=== PATIENT | female | born 1970 | race Caucasian/White ===

== ENCOUNTER 2018-01-07 00:33 | Emergency (ER) | payer MEDICARE | END 2018-01-07 02:51 | disposition left against medical advice (07) | LOC: JD.ED 00:33 | DX: Z53.21 Procedure and treatment not carried out due to patient leaving prior to being seen by health care provider (principal) ==

== ENCOUNTER 2018-08-15 14:02 | Emergency (ER) | payer MEDICARE ==
[2018-08-15] MEDS ORDERED: Ketorolac 60 MG/2 ML SDV IM ONE (14:49)
[2018-08-15] MEDS ORDERED: Cyclobenzaprine 10 MG Tab PO ONE (14:50)
--- NOTE | 2018-08-15 14:56 | EDM.PDOC ---
<Alana Mata - Last Filed: 08/15/18 15:40> ED HPI GENERAL MEDICAL PROBLEM - General Chief Complaint: Back Pain or Injury Stated Complaint: BACK PAIN Time Seen by Provider: 08/15/18 14:27 Source of Information: Reports: Patient History Limitations: Reports: No Limitations - History of Present Illness Onset: Today, Sudden Onset Date: 08/15/18 Onset Time: 01:20 Duration: Hour(s):, Getting Worse Location: Reports: Other (lower back ) Quality: Reports: Throbbing Severity: Moderate Improves with: Reports: Medication Worsens with: Reports: Movement Context: Denies: Trauma Associated Symptoms: Reports: Other (denies any incontince of bowel or bladder. ). Denies: Chest Pain Treatments MICA PASTER: Reports: Other (see below) (nothing) Bilateral Lower Posterior Back Pain Score (Numeric/FACES): 10 - Related Data Allergies Allergy/AdvReac Type Severity Reaction Status Date / Time adhesive Allergy Rash Verified 01/07/18 00:56 amoxicillin Allergy Rash Verified 01/07/18 00:56 Home Meds: Home Meds Ranitidine [Zantac] 150 mg PO BID PRN 01/07/18 [History] glipiZIDE [Glucotrol XL] 2.5 mg PO DAILY 01/07/18 [History] lamoTRIgine [Lamotrigine] 100 mg PO BID 01/07/18 [History] metFORMIN [Glucophage XR] 1,000 mg PO BID 01/07/18 [History] traZODone HCl [Trazodone HCl] 100 mg PO BEDTIME 01/07/18 [History] ClonazePAM [KlonoPIN] 2 tab PO BEDTIME 08/15/18 [History] Cyclobenzaprine [Flexeril] 10 mg PO BID PRN #20 tab 08/15/18 [Rx] Ketorolac [Toradol] 10 mg PO TID PRN #20 tab 08/15/18 [Rx] predniSONE [Prednisone] 20 mg PO DAILY #10 tablet 08/15/18 [Rx] Past Medical History HEENT History: Reports: Other (See Below) Other HEENT History: contacts Cardiovascular History: Reports: High Cholesterol Respiratory History: Reports: Asthma Gastrointestinal History: Reports: GERD Other Gastrointestinal History: fatty liver Neurological History: Reports: Headaches, Chronic, Migraines Psychiatric History: Reports: Anxiety, Bipolar, Depression, OCD Other Psychiatric History: caro Endocrine/Metabolic History: Reports: Diabetes, Type II - Past Surgical History Musculoskeletal Surgical History: Reports: Other (See Below) Other Musculoskeletal Surgeries/Procedures:: bilateral 1st rib removed Social & Family History - Tobacco Use Smoking Status *Q: Current Every Day Smoker Years of Tobacco use: 24 Packs/Tins Daily: 1 - Caffeine Use Caffeine Use: Reports: Coffee - Recreational Drug Use Recreational Drug Use: No ED ROS GENERAL - Review of Systems Review Of Systems: See Below Constitutional: Reports: No Symptoms. Denies: Fever, Chills HEENT: Reports: No Symptoms Respiratory: Reports: No Symptoms. Denies: Shortness of Breath Cardiovascular: Reports: No Symptoms. Denies: Chest Pain Endocrine: Reports: No Symptoms GI/Abdominal: Reports: No Symptoms : Reports: No Symptoms Musculoskeletal: Reports: Back Pain Skin: Reports: No Symptoms Neurological: Reports: No Symptoms Psychiatric: Reports: No Symptoms Hematologic/Lymphatic: Reports: No Symptoms Immunologic: Reports: No Symptoms ED EXAM,LOWER BACK PAIN/INJURY - Physical Exam Exam: See Below Exam Limited By: No Limitations General Appearance: Alert, WD/WN, No Apparent Distress Respiratory/Chest: No Respiratory Distress, Lungs Clear, Normal Breath Sounds, No Accessory Muscle Use, Chest Non-Tender Cardiovascular: Normal Peripheral Pulses, Regular Rate, Rhythm, No Edema, No Gallop, No JVD, No Murmur GI/Abdominal: Normal Bowel Sounds, Soft, Non-Tender, No Organomegaly, No Distention, No Abnormal Bruit, No Mass, Pelvis Stable Back Exam: Decreased Range of Motion, Muscle Spasm. No: CVA Tenderness (R) Extremities: Normal Inspection, Normal Range of Motion, Non-Tender, No Pedal Edema, Normal Capillary Refill Neurological: Alert, Normal Mood/Affect, Normal Dorsiflexion, CN II-XII Intact, Normal Plantar Flexion, Normal Gait, Normal Reflexes, No Motor/Sensory Deficits , Oriented x 3, Other (Patient has full range of motion including range of motion against resistance, patient is able to bend, stoop, twist and dorsiflex her toes. Her skin is intact with normal temperature and sensation.) Psychiatric: Normal Affect, Normal Mood Skin Exam: Warm, Dry, Intact, Normal Color, No Rash Lymphatic: No Adenopathy Course - Vital Signs Last Recorded V/S: Last Vital Signs Temp 36.6 C 08/15/18 14:25 Pulse 80 08/15/18 14:25 Resp 20 08/15/18 14:25 BP 126/92 H 08/15/18 14:25 Pulse Ox 100 08/15/18 14:25 - Orders/Labs/Meds Meds: Medications Discontinued Medications Generic Name Dose Route Start Last Admin Trade Name Freq PRN Reason Stop Dose Admin Cyclobenzaprine HCl 10 mg 08/15/18 14:50 08/15/18 15:00 Flexeril PO 08/15/18 14:51 10 mg ONETIME ONE Administration Ketorolac Tromethamine 60 mg 08/15/18 14:49 08/15/18 15:00 Toradol IM 08/15/18 14:50 60 mg ONETIME ONE Administration - Re-Assessments/Exams Free Text/Narrative Re-Assessment/Exam: 08/15/18 15:35 Patient reports feeling better she is up ambulatory gait is steady. I discussed plan of care for discharge. I will discharge home with Toradol prednisone and Flexeril. I instructed patient to take Flexeril and not drink, drive or operate machinery. Patient verbalized understanding and is comfortable plan for discharge. Instructed patient to return to the [facility] any new or acutely worsening symptoms. Instructed patient to follow up with her PCP. Departure - Departure Time of Disposition: 15:36 Disposition: Home, Self-Care 01 Condition: Good Clinical Impression: Lumbar radiculopathy - Discharge Information *PRESCRIPTION DRUG MONITORING PROGRAM REVIEWED*: Not Applicable *COPY OF PRESCRIPTION DRUG MONITORING REPORT IN PATIENT SUSANNAH: Not Applicable Prescriptions: Cyclobenzaprine [Flexeril] 10 mg PO BID PRN #20 tab PRN Reason: back spasms Ketorolac [Toradol] 10 mg PO TID PRN #20 tab PRN Reason: back spasms and pain predniSONE [Prednisone] 20 mg PO DAILY #10 tablet Instructions: Back Pain, Adult Referrals: Ange Santos PA-C [Primary Care Provider] - Forms: ED Department Discharge Additional Instructions: You have been diagnosed with lumbar radiculopathy. Your prescribed Flexeril, Toradol and prednisone. Do not take Flexeril and drink, drive or operate machinery. Monitor your blood sugars while on prednisone. Follow-up with your PCP. Continue back exercises and yoga as previously prescribed. Return to the emergency room for any new or acutely worsening symptoms. <Abdoulaye Scott - Last Filed: 08/15/18 21:16> Course - Radiology Interpretation Free Text/Narrative:: 48-year-old female presents the ED with an acute exacerbation of chronic low back pain. She states she bent over and stood up suddenly and felt sudden onset of pain and spasm in her lower back. She was seen and examined by both myself and nurse practitioner Alana Mata. I agree with the perform physical examination and medical decision-making. I verified the history and physical exam and medical decision making and find no problems. I concur with plan to treat her with IM Toradol and oral Flexeril 10 mg. To be sent home on similar medication plus a 5 day course of prednisone 20 mg twice a day. Follow-up with her personal care physician if not markedly improved in that timeframe.
== END 2018-08-15 16:09 | disposition home or self-care (01) ==
LOC: JD.ED 14:02
DX: M54.16 Radiculopathy, lumbar region (principal); E11.9 Type 2 diabetes mellitus without complications; F17.210 Nicotine dependence, cigarettes, uncomplicated; Z79.899 Other long term (current) drug therapy; Z88.1 Allergy status to other antibiotic agents; Z91.09 Other allergy status, other than to drugs and biological substances
CPT/HCPCS: 96372; 99283; A9270; J1885

== ENCOUNTER 2019-10-04 21:12 | Emergency (ER) | payer MEDICARE ==
--- NOTE | 2019-10-04 21:39 | EDM.PDOCBH ---
ED HPI GENERAL MEDICAL PROBLEM - General Chief Complaint: Behavioral/Psych Stated Complaint: ANXIETY - UNCONTROLLABLE BODY MOVEMENTS Time Seen by Provider: 10/04/19 21:13 Source of Information: Reports: Patient History Limitations: Reports: Other (Talks and talks and talks without given us much useful information) - History of Present Illness INITIAL COMMENTS - FREE TEXT/NARRATIVE: TRIAGE NOTE -- Pt c/o increasing panic attacks over the past 3 weeks. States has been having involuntary movemetns that have become worse. Patient does not give us much in the way of focussed history. Patient is suspected to be on a stimulant drug of some sort influencing her presentation. - Related Data Allergies Allergy/AdvReac Type Severity Reaction Status Date / Time adhesive Allergy Severe Rash Verified 10/04/19 21:23 amoxicillin Allergy Severe Rash Verified 10/04/19 21:23 Home Meds: Home Meds Ranitidine [Zantac] 150 mg PO BID PRN 01/07/18 [History] lamoTRIgine [Lamotrigine] 100 mg PO BID 01/07/18 [History] metFORMIN [Glucophage XR] 1,000 mg PO BID 01/07/18 [History] traZODone HCl [Trazodone HCl] 100 mg PO BEDTIME 01/07/18 [History] ClonazePAM [KlonoPIN] 0.5 tab PO ASDIRECTED PRN 08/15/18 [History] PARoxetine HCl [Paxil] 40 mg PO 10/04/19 [History] Sertraline [Zoloft] 100 mg PO DAILY 10/04/19 [History] hydrOXYzine HCL [Atarax] 50 mg PO BEDTIME 10/04/19 [History] Past Medical History HEENT History: Reports: Impaired Vision, Other (See Below) Other HEENT History: contacts Cardiovascular History: Reports: High Cholesterol Respiratory History: Reports: Asthma Gastrointestinal History: Reports: GERD Other Gastrointestinal History: fatty liver Neurological History: Reports: Headaches, Chronic, Migraines Psychiatric History: Reports: Anxiety, Bipolar, Depression, OCD Other Psychiatric History: caro Endocrine/Metabolic History: Reports: Diabetes, Type II - Past Surgical History Musculoskeletal Surgical History: Reports: Other (See Below) Other Musculoskeletal Surgeries/Procedures:: bilateral 1st rib removed Social & Family History - Tobacco Use Smoking Status *Q: Current Every Day Smoker Years of Tobacco use: 30 Packs/Tins Daily: 0.5 - Caffeine Use Caffeine Use: Reports: Coffee - Recreational Drug Use Recreational Drug Use: Yes Drug Use in Last 12 Months: Yes Recreational Drug Type: Reports: Marijuana/Hashish Recreational Drug Use Frequency: Weekly ED ROS GENERAL - Review of Systems Review Of Systems: Unable To Obtain (There is either intoxication or decompensation of a psychiatric condition making patient unable or unwilling to participate in history taking to a meaningful extent.) Reason Not Obtained: There is either intoxication or decompensation of a psychiatric c ED EXAM, BEHAVIORAL HEALTH - Physical Exam Exam: See Below Exam Limited By: Uncooperative (Poor cooperation) General Appearance: Alert, WD/WN, No Apparent Distress, Anxious (Standing in exam room, shaking and stamping her feet a little bit) Eye Exam: Bilateral Eye: EOMI, PERRL Ears: Normal External Exam Nose: Normal Inspection Throat/Mouth: Normal Inspection Head: Atraumatic, Normocephalic Neck: Normal Inspection, Supple Respiratory/Chest: No Respiratory Distress, Lungs Clear, Normal Breath Sounds, No Accessory Muscle Use Cardiovascular: Tachycardia GI/Abdominal: Soft, Non-Tender Back Exam: Normal Inspection Extremities: Normal Inspection, Non-Tender Neurological: Alert, Normal Gait, No Motor/Sensory Deficits Psychiatric: Agitated (Mildly), Uncooperative, Pressured Speech. No: Homicidal Thoughts, Suicidal Thoughts Skin Exam: Warm, Dry COURSE, BEHAVIORAL HEALTH COMP - Course Vital Signs: Last Vital Signs Temp 36.4 C 10/04/19 21:18 Pulse 120 H 10/04/19 21:18 Resp 20 10/04/19 21:18 BP 132/82 10/04/19 21:18 Pulse Ox 99 10/04/19 21:18 Orders, Labs, Meds: Active Orders 24 hr Category Date Time Status EKG Documentation Completion [RC] STAT Care 10/04/19 21:33 Active Chest 1V Frontal [CR] Stat Exams 10/04/19 21:32 Taken Sodium Chloride 0.9% [Normal Saline] 1,000 ml Med 10/04/19 23:30 Active IV ASDIRECTED Medication Orders Sodium Chloride (Normal Saline) 1,000 mls @ 150 mls/hr IV ASDIRECTED JAZMIN Last Admin: 10/04/19 23:29 Dose: 150 mls/hr Laboratory Tests 10/04/19 10/04/19 10/04/19 Range/Units 21:45 21:45 23:01 WBC 11.21 H (3.98-10.04) K/mm3 RBC 5.39 H (3.98-5.22) M/mm3 Hgb 14.5 (11.2-15.7) gm/dl Hct 42.6 (34.1-44.9) % MCV 79.0 L (79.4-94.8) fl MCH 26.9 (25.6-32.2) pg MCHC 34.0 (32.2-35.5) g/dl RDW Std Deviation 39.4 (36.4-46.3) fL Plt Count 308 (182-369) K/mm3 MPV 9.6 (9.4-12.3) fl Neutrophils % (Manual) 59 (40-60) % Band Neutrophils % 2 (0-10) % Lymphocytes % (Manual) 32 (20-40) % Atypical Lymphs % 1 % Monocytes % (Manual) 4 (2-10) % Eosinophils % (Manual) 2 (0.7-5.8) % Basophils % (Manual) 0 L (0.1-1.2) Platelet Estimate Adequate RBC Morph Comment Normal Sodium 138 (136-145) mEq/L Potassium 4.4 (3.5-5.1) mEq/L Chloride 99 (98-107) mEq/L Carbon Dioxide 29 (21-32) mEq/L Anion Gap 14.4 (5-15) BUN 8 (7-18) mg/dL Creatinine 0.8 (0.55-1.02) mg/dL Est Cr Clr Drug Dosing 67.28 mL/min Estimated GFR (MDRD) > 60 (>60) mL/min BUN/Creatinine Ratio 10.0 L (14-18) Glucose 119 H (74-106) mg/dL Calcium 9.9 (8.5-10.1) mg/dL Total Bilirubin 0.4 (0.2-1.0) mg/dL AST 45 H (15-37) U/L ALT 53 (14-59) U/L Alkaline Phosphatase 53 (46-116) U/L Troponin I < 0.017 (0.00-0.056) ng/mL Total Protein 9.0 H (6.4-8.2) g/dl Albumin 4.2 (3.4-5.0) g/dl Globulin 4.8 gm/dL Albumin/Globulin Ratio 0.9 L (1-2) TSH 3rd Generation 1.879 (0.358-3.74) uIU/mL Urine Color Light yellow (Yellow) Urine Appearance Clear (Clear) Urine pH 8.0 (5.0-8.0) Ur Specific [employer] 1.020 (1.005-1.030) Urine Protein Negative (Negative) Urine Glucose (UA) Negative (Negative) Urine Ketones Negative (Negative) Urine Occult Blood Negative (Negative) Urine Nitrite Negative (Negative) Urine Bilirubin Negative (Negative) Urine Urobilinogen 0.2 (0.2-1.0) Ur Leukocyte Esterase Negative (Negative) Urine HCG, Qual (NEGATIVE) Urine Opiates Screen (VCSKXR=680) Ur Buprenorphine Scrn (CUTOFF=10) Ur Oxycodone Screen (MCJ9VV=176) Urine Methadone Screen (UUVJVN=093) Ur Propoxyphene Screen (UALYGT=157) Ur Barbiturates Screen (AXYFCP=666) Ur Tricyclics Screen (NHNPVY=277) Ur Phencyclidine Scrn (CUTOFF=25) Ur Amphetamine Screen (ISCCRN=451) U Methamphetamines Scrn (NXANOX=108) U Benzodiazepines Scrn (PUMCBI=834) U Cocaine Metab Screen (NPQMLI=527) U Marijuana (THC) Screen (CUTOFF=50) Ethyl Alcohol 0.00 (0.00) gm% 10/04/19 10/04/19 Range/Units 23:01 23:01 WBC (3.98-10.04) K/mm3 RBC (3.98-5.22) M/mm3 Hgb (11.2-15.7) gm/dl Hct (34.1-44.9) % MCV (79.4-94.8) fl MCH (25.6-32.2) pg MCHC (32.2-35.5) g/dl RDW Std Deviation (36.4-46.3) fL Plt Count (182-369) K/mm3 MPV (9.4-12.3) fl Neutrophils % (Manual) (40-60) % Band Neutrophils % (0-10) % Lymphocytes % (Manual) (20-40) % Atypical Lymphs % % Monocytes % (Manual) (2-10) % Eosinophils % (Manual) (0.7-5.8) % Basophils % (Manual) (0.1-1.2) Platelet Estimate RBC Morph Comment Sodium (136-145) mEq/L Potassium (3.5-5.1) mEq/L Chloride (98-107) mEq/L Carbon Dioxide (21-32) mEq/L Anion Gap (5-15) BUN (7-18) mg/dL Creatinine (0.55-1.02) mg/dL Est Cr Clr Drug Dosing mL/min Estimated GFR (MDRD) (>60) mL/min BUN/Creatinine Ratio (14-18) Glucose (74-106) mg/dL Calcium (8.5-10.1) mg/dL Total Bilirubin (0.2-1.0) mg/dL AST (15-37) U/L ALT (14-59) U/L Alkaline Phosphatase (46-116) U/L Troponin I (0.00-0.056) ng/mL Total Protein (6.4-8.2) g/dl Albumin (3.4-5.0) g/dl Globulin gm/dL Albumin/Globulin Ratio (1-2) TSH 3rd Generation (0.358-3.74) uIU/mL Urine Color (Yellow) Urine Appearance (Clear) Urine pH (5.0-8.0) Ur Specific [employer] (1.005-1.030) Urine Protein (Negative) Urine Glucose (UA) (Negative) Urine Ketones (Negative) Urine Occult Blood (Negative) Urine Nitrite (Negative) Urine Bilirubin (Negative) Urine Urobilinogen (0.2-1.0) Ur Leukocyte Esterase (Negative) Urine HCG, Qual Negative (NEGATIVE) Urine Opiates Screen Negative (BOCUMQ=247) Ur Buprenorphine Scrn Negative (CUTOFF=10) Ur Oxycodone Screen Negative (WDJ7UM=754) Urine Methadone Screen Negative (NBZGYI=005) Ur Propoxyphene Screen Negative (KMTOYY=678) Ur Barbiturates Screen Negative (WZCXCP=312) Ur Tricyclics Screen Negative (TNEVDJ=976) Ur Phencyclidine Scrn Negative (CUTOFF=25) Ur Amphetamine Screen Negative (IBIBXG=716) U Methamphetamines Scrn Negative (SLRAOW=708) U Benzodiazepines Scrn Negative (ZXBAHH=639) U Cocaine Metab Screen Negative (WZUEYI=449) U Marijuana (THC) Screen Negative (CUTOFF=50) Ethyl Alcohol (0.00) gm% Medications Generic Name Dose Route Start Last Admin Trade Name Kevin PRN Reason Stop Dose Admin Sodium Chloride 1,000 mls @ 150 mls/hr 10/04/19 23:30 10/04/19 23:29 Normal Saline IV 150 mls/hr ASDIRECTED JAZMIN Administration Discontinued Medications Generic Name Dose Route Start Last Admin Trade Name Freandrea PRN Reason Stop Dose Admin Sodium Chloride 1,000 mls @ 150 mls/hr 10/04/19 21:45 Normal Saline IV ASDIRECTED JAZMIN Lorazepam 2 mg 10/04/19 23:23 10/04/19 23:29 Ativan IVPUSH 10/04/19 23:24 2 mg ONETIME ONE Administration Medical Clearance: 10/05/19 00:39 Patient finally relented and allowed us to evaluate her and treat her. There was concern that some substance was driving the agitation. Drug screen was negative. However there is still lingering concern that perhaps it was an undetectable substance such as spice. Patient allowed us to give her some IV fluids and her heart rate normalized. She received 2 mg of Ativan IV and her agitation was almost fully moderated. Patient was hungry and demanding food which was provided. Discussed with patient fully. She has access to a psychiatrist. She is to call this morning and make arrangements for follow-up. She was given to understand that she is urgently in need of psychiatric management. I told her it would not be unreasonable to transfer her for psychiatric admission tonight. She would rather go home and as she promises not to harm herself or others there is no reason to hold her involuntarily. Departure - Departure Time of Disposition: 00:41 Disposition: Home, Self-Care 01 Clinical Impression: Agitation, Acute anxiety - Discharge Information Referrals: Agne Santos PA-C [Primary Care Provider] - Forms: ED Department Discharge Additional Instructions: Notify your psychiatrist this morning regarding this visit. Arrange to be seen ALBAN. You need to have your medications reviewed. You need to have psychiatric evaluation done rigorously. Do not hesitate to return to the ER for any concerns whatsoever. Sepsis Event Note - Evaluation Sepsis Screening Result: No Definite Risk - Focused Exam Vital Signs: Vital Signs Temp Pulse Resp BP Pulse Ox 10/04/19 21:18 36.4 C 120 H 20 132/82 99 Date Exam was Performed: 10/05/19 Time Exam was Performed: 00:38 - My Orders Last 24 Hours: My Active Orders 10/04/19 21:32 Chest 1V Frontal [CR] Stat 10/04/19 21:33 EKG Documentation Completion [RC] STAT 10/04/19 23:30 Sodium Chloride 0.9% [Normal Saline] 1,000 ml IV ASDIRECTED - Assessment/Plan Last 24 Hours: My Active Orders 10/04/19 21:32 Chest 1V Frontal [CR] Stat 10/04/19 21:33 EKG Documentation Completion [RC] STAT 10/04/19 23:30 Sodium Chloride 0.9% [Normal Saline] 1,000 ml IV ASDIRECTED
[2019-10-04] MEDS ORDERED: Sodium Chloride 0.9% 1,000 ML IV SCH ×2 (21:45→23:30)
[2019-10-04] MEDS ORDERED: LORazepam 2 MG/ML SDV IVPUSH ONE (23:23)
--- NOTE | 2019-10-05 09:21 | CR ---
Chest: Portable view of the chest was obtained. Comparison: No prior chest imaging is available. Heart size and mediastinum are normal. Lungs are clear with no acute parenchymal change. Bony structures are grossly intact. Impression: 1. Nothing acute is identified on portable chest x-ray. Diagnostic code #1 This report was dictated in MDT
== END 2019-10-05 00:53 | disposition home or self-care (01) ==
LOC: JD.ED 21:12
DX: F41.9 Anxiety disorder, unspecified (principal); J45.909 Unspecified asthma, uncomplicated; F31.9 Bipolar disorder, unspecified; E11.9 Type 2 diabetes mellitus without complications; F17.210 Nicotine dependence, cigarettes, uncomplicated; Z88.0 Allergy status to penicillin; Z91.09 Other allergy status, other than to drugs and biological substances; Z79.899 Other long term (current) drug therapy; Z79.84 Long term (current) use of oral hypoglycemic drugs
CPT/HCPCS: 36415; 71045; 80053; 80306; 80307; 81003; 81025; 84443; 84484; 85007; 85027; 96361; 96374; 99284; J2060; J7030